=== PATIENT | male | born 1990 | race Caucasian/White ===

== ENCOUNTER 2023-01-15 10:48 | Emergency (ER) | payer MEDICAID ==
[~2023-01-15] VITALS: Ht 185.4 cm; Wt 104.5 kg
[2023-01-15] MEDS ORDERED: ketorolac tromethamine 15mg/ml inj. IM ONE (11:15)
[2023-01-15] MEDS ORDERED: CYCL-394 PO (12:32)
[2023-01-15] MEDS ORDERED: NAPR-56 PO (12:32)
[2023-01-15 12:38] VITALS: BP 112/58
== END 2023-01-15 12:59 | disposition home or self-care (01) ==
LOC: ER 10:48
DX: S39.012A Strain of muscle, fascia and tendon of lower back, initial encounter (principal); M25.521 Pain in right elbow; G89.29 Other chronic pain; M54.59 Other low back pain; F12.10 Cannabis abuse, uncomplicated; Z88.1 Allergy status to other antibiotic agents; Z79.899 Other long term (current) drug therapy; X58.XXXA Exposure to other specified factors, initial encounter; Y93.89 Activity, other specified; Y92.89 Other specified places as the place of occurrence of the external cause; Y99.8 Other external cause status
CPT/HCPCS: 72074; 72100; 73080; 96372; 99284; J1885

== ENCOUNTER 2025-06-15 10:34 | Emergency (ER) | payer MEDICAID ==
[~2025-06-15] VITALS: Ht 185.4 cm; Wt 112.2 kg
[2025-06-15 10:37] VITALS: BP 132/84; PULSE 71; RESP 18; O2SAT 99
[2025-06-15 11:19] LABS: MEAN PLATELET VOLUME 7.2 FL (7.4-10.4); RED CELL DISTRIBUTION WIDTH 14.6 % (11.5-14.5)
[2025-06-15 11:21] LABS: LEUKOCYTE ESTERASE ,URINE NEGATIVE (Neg); NITRITES, URINE NEGATIVE (Neg); OCCULT BLOOD,URINE NEGATIVE (Neg)
[2025-06-15 11:25] LABS: UA COLLECTION TYPE CLN CATCH MIDSTREAM
[2025-06-15 11:27] LABS: CREATININE 0.90 MG/DL (0.60-1.10); TOTAL CARBON DIOXIDE 26.5 MMOL/L (24-32); eCRCL 131 ML/MIN; eGFR > 90 ML/MIN
[2025-06-15 11:30] LABS: SQUAMOUS EPITHELIAL CELL,UR FEW /LPF (FEW)
--- NOTE | 2025-06-15 11:30 | RADIOLOGY REPORT ---
DI CHEST,SINGLE VIEW, HISTORY: SEPSIS COMPARISON: None None TECHNICAL DATA: 1 view of the chest was obtained. FINDINGS: Lines and tubes: None Cardiomediastinal silhouette: normal Pulmonary vasculature: normal Lung expansion: normal Lung airspace: normal Lung interstitium: normal Pleura: normal Pneumothorax: no Bones: Unremarkable Other: no IMPRESSION: No acute intrathoracic abnormality.
[2025-06-15 11:33] LABS: MUCUS STRANDS MANY /LPF (Neg)
--- NOTE | 2025-06-15 12:33 | Physician Documentation ---
History of Present Illness ~ Chief Complaint: Flu Symptoms Stated Complaint: FEVER ON AND OFF 3 MONTHS Time Seen by MD: 10:47 OK to notify your PCP?: Yes Primary Medical Doctor: Dr. Tabares Source: patient Mode of Arrival: POV Exam Limitations: no limitations HPI This is a 34-year-old male who comes in stating he has been feeling sick for a couple of months. He states his symptoms this is into worse at night with the fevers and chills. He has had an occasional cough. No nausea vomiting diarrhea. Currently he is not experiencing any symptoms. No change in bladder or bowel habits. Right now he isn't having pain anywhere. Medication Reconciliation Allergies: Coded Allergies: amoxicillin (Unverified Allergy, Unknown, 01/15/23) clavulanic acid (Unverified Allergy, Unknown, 01/15/23) iodine (Unverified Allergy, Unknown, 06/15/25) Past Medical History Past Medical History: Chronic Back Pain, *PSYCH* Past Surgical History: noncontributory Alcohol Use: Occasionally Drug Use: marijuana, other Lives In: Home Occupation: employed Physical Exam Vital Signs: Temperature: 97.9, Source: Temporal, Heart Rate: 71, Respiratory Rate: 18, BP: 132/84, Pulse Oximetry: 99, Weight: 112.200 Oxygen Flow Rate: 0 Pulse Oximetry Reflects: adequate oxygenation General Appearance: alert, WD/WN, no apparent distress Eyes: normal inspection EENT Bilateral EACs and TMs are within normal limits. Oropharynx shows no erythema edema or exudates. Mucous membranes are moist Neck: non-tender, full range of motion, supple, normal inspection, trachea midline Neck No meningeal signs Respiratory No accessory muscle use or retractions. Lungs are clear to auscultation all yeung. Cardiovascular No rubs, gallops or murmurs Gastrointestinal No tenderness to palpation x4 quadrants. No rigidity, rebound or guarding x4 quads. No Chandra's sign. Negative McBurney's point tenderness Back: no CVA tenderness Skin: normal color, warm/dry Neurologic: oriented x4, sales program manager II-XII nml as tested Lymphatic: no adenopathy Progress Results/Orders Reviewed/noted all lab results: Yes Results/Orders Vital Signs 06/15/25 06/15/25 10:37 12:41 Temp 97.9 97.9 Pulse 71 Resp 18 B/P (MAP) 132/84 Pulse Ox 99 O2 Flow Rate 0 Laboratory Tests Test 06/15/25 11:04 06/15/25 11:06 06/15/25 11:07 SARS-CoV-2 Antigen (Rapid) Negative Urine Specimen Description Cln catch midstream Urine Color Yellow Urine Clarity Slightly cloudy Urine pH 6.0 Urine Specific Mcclure 1.025 Urine Protein Negative Urine Glucose (UA) Negative Urine Ketones Negative Urine Occult Blood Negative Urine Nitrite Negative Urine Bilirubin Negative Urine Urobilinogen 0.2 Urine Leukocyte Esterase Negative Urine RBC 3-10 Urine WBC 10-20 H Urine Squamous Epithelial Cells Few Urine Bacteria Few Urine Coarse Granular Casts Urine Mucus Many Urine Culture Indicated Indicated Volume Urine Centrifuged 10 ml Urine Comment White Blood Count 8.1 Red Blood Count 4.93 Hemoglobin 14.0 Hematocrit 41.8 L Mean Corpuscular Volume 84.8 Mean Corpuscular Hemoglobin 28.5 Mean Corpuscular Hemoglobin Concent 33.6 Red Cell Distribution Width 14.6 H Platelet Count 266 Mean Platelet Volume 7.2 L Neutrophils (%) (Auto) 64.7 Lymphocytes (%) (Auto) 27.5 Monocytes (%) (Auto) 6.0 Eosinophils (%) (Auto) 0.9 Basophils (%) (Auto) 0.9 Neutrophils # (Auto) 5.2 Lymphocytes # (Auto) 2.2 Monocytes # (Auto) 0.5 Eosinophils # (Auto) 0.1 Basophils # (Auto) 0.1 CBC Comment Sodium Level 141 Potassium Level 3.6 Chloride Level 107 Carbon Dioxide Level 26.5 Anion Gap 8 Blood Urea Nitrogen 13 Creatinine 0.90 Estimated GFR/1.73 m2 > 90 BUN/Creatinine Ratio 14.4 Glucose Level 110 H Calcium Level 9.3 Albumin 3.8 Chemistry Comments Microbiology Date/Time Source Procedure Growth Status 06/15/25 11:35 Urine Clean Catch Midstream Urine Culture - Preliminary Culture received. Resulted EKG/XRAY/CT/US/VASC/MRI Chest X-Ray : Interpreted By: self Views: 1 VIEW Additional Comments Chest x-ray one view was interpreted by me: No acute disease process. Lungs are this is a clear. Cardiac silhouette appropriate. No bony abnormalities. Soft tissues unremarkable Medical Decision Making Findings The patient's workup which included a CBC CMP, urinalysis, viral swabs and chest x-ray were all within normal limits. His vital signs are within normal limits in his physical exam sensation in his negative. This could be a viral etiology. The patient is concerned about Lyme disease as he has been his lot of time outdoors. I told him follow up with the primary care physician and he does have an upcoming appointment with the PCP which he will address the possibility Lyme disease. Return to the ER for any worsening or acute issues Additional Comment Viral syndrome. Pneumonia. COVID. Influenza. UTI. Departure Disposition: HOME / SELF CARE / HOMELESS Impression: Primary Impression: Viral infection Condition: Stable Discharge Instructions: Viral Illness Additional Instructions: Your workup today did not show any concerning findings. Take ibuprofen or Tylenol if you have any fever or body aches. Drink lots of water and rest. Follow up with the primary care physician. Return for any worsening or concerning symptoms Referrals: NO PRIMARY CARE PROVIDER (PCP) Signature Scribe Signature: No scribe Attestation: The note accurately reflects work and decisions made by me.Honorio LOMAS 06/15/25 12:32 HONORIO GUADARRAMA Jun 15, 2025 12:33 HOME CARVALHO MD Jun 16, 2025 07:43
[2025-06-15 12:41] VITALS: TEMP 97.9
== END 2025-06-15 12:43 | disposition home or self-care (01) ==
LOC: ER 10:34
DX: B34.9 Viral infection, unspecified (principal); G89.29 Other chronic pain; F12.90 Cannabis use, unspecified, uncomplicated; F19.90 Other psychoactive substance use, unspecified, uncomplicated; Z88.1 Allergy status to other antibiotic agents; Z79.899 Other long term (current) drug therapy; Z72.89 Other problems related to lifestyle; Z20.822 Contact with and (suspected) exposure to COVID-19
CPT/HCPCS: 36415; 71045; 80048; 81001; 85025; 87088; 87811; 99284

== ENCOUNTER 2025-07-16 08:25 | Emergency (ER) | payer MEDICAID ==
[~2025-07-16] VITALS: Ht 185.4 cm; Wt 112.5 kg
[2025-07-16 08:28] VITALS: TEMP 97.3
--- NOTE | 2025-07-16 08:45 | Physician Documentation ---
History of Present Illness ~ Chief Complaint: Cold, cough & congestion Stated Complaint: COUGH Time Seen by MD: 08:40 Primary Medical Doctor: Ernestina Samuels [facility] This is a 35-year-old male who presents to the emergency department with what he describes as four days of illness with reported fever 102 at start of illness. He endorses spasmodic cough inducing vomiting. No CP. No abd pain or diarrhea. He was seen in this emergency department one month ago on 06/15/2025 at which point he had a chest x-ray with no acute abnormalities, labs that were all normal, urinalysis that appeared to be infected but showed no growth at 48 hours. The patient also had a negative COVID-19 test at that time. Medication Reconciliation Allergies: Coded Allergies: amoxicillin (Unverified Allergy, Unknown, 07/16/25) clavulanic acid (Unverified Allergy, Unknown, 07/16/25) iodine (Unverified Allergy, Unknown, 07/16/25) Past Medical History Past Medical History: Chronic Back Pain, *PSYCH* Past Surgical History: noncontributory Alcohol Use: Occasionally Drug Use: marijuana, other Lives In: Home Occupation: employed Review of Systems ROS As stated above in the HPI, otherwise all systems are reviewed and negative. Physical Exam Vital Signs: Temperature: 97.3, Source: Temporal, Heart Rate: 90, Respiratory Rate: 18, BP: 102/78, Pulse Oximetry: 100, Weight: 112.500 Oxygen Flow Rate: 0 Physical Exam General: Alert, no apparent distress. Neck: Full range of motion. Respiratory: Lungs clear, no respiratory distress. Chest: No accessory muscle use. Cardiovascular: Regular rate and rhythm, no murmurs. Gastrointestinal: Soft, nontender, nondistended. Bowels sounds present. Extremities: Normal range of motion, no deformity. Neurologic: Oriented x4. Psychiatric: Normal mood and affect. Skin: Normal color, warm and dry. No edema, no ecchymosis. Progress Results/Orders Results/Orders Orders - BRAYDON RYDER NP Covid19 Binax Poc Result Entry (07/16/25 08:53) Completed Orders - BRAYDON RYDER NP Influenza Type A&B Rapid Test (07/16/25 08:53) Vital Signs 07/16/25 07/16/25 08:28 09:16 Temp 97.3 Pulse 90 79 Resp 18 18 B/P (MAP) 102/78 122/73 (89) Pulse Ox 100 97 O2 Flow Rate 0 0 Laboratory Tests Test 07/16/25 09:11 07/16/25 09:13 SARS-CoV-2 Antigen (Rapid) Negative Influenza Type A Antigen Negative Influenza Type B Antigen Negative Medical Decision Making Additional information obtaine: old records Findings Patient was here 06/15/2025 for similar symptoms. Differential Dx:Considerations: Include: Allergic rhinitis, Influenza, Otitis media, Peritonsillar abscess, Pharyngitis-Diphtheria, Pharyngitis-Streptoccal, Pharyngitis-Viral, Pneumonia, Pnuemonitis, Sinusitis, URI Departure Time of Disposition: 09:49 Disposition: 01 HOME / SELF CARE / HOMELESS Impression: Primary Impression: Acute bronchitis Discharge Instructions: Acute Bronchitis, Adult Additional Instructions: You are viral testing was negative for COVID and influenza. You appear to have bronchitis, which is a viral process, made worse in people who smoke due to their tobacco exposure. You will be treated with a Medrol Dosepak, a Ventolin inhaler, and ondansetron as needed for nausea. Please follow up with your primary care provider, return if worse. Referrals: NO PRIMARY CARE PROVIDER (PCP) Prescriptions Ondansetron 8mg ODT (Ondansetron Odt) 8 Mg Tab.rapdis 1 TAB PO TID PRN for nausea/vomiting, #10 TAB Prov: BRAYDON RYDER NP 07/16/25 Albuterol Sulfate (Ventolin Hfa) 90 Mcg Hfa.aer.ad 2 PUFFS INH Q4HPRN PRN for wheezing for 30 Days, #18 GM 0 Refills Prov: BRAYDON RYDER NP 07/16/25 Methylprednisolone (Medrol Dosepak) 4 Mg Tab.ds.pk 0 PO UD, #21 TAB 0 Refills take 6 Pills Day 1, 5 Pills Day 2, 4 Pills Day 3, 3 Pills Day 4, 2 Pills Day 5 and 1 pill Day 6 Prov: BRAYDON RYDER NP 07/16/25 Education Educated: Patient Educated regarding: diagnosis, treatment, prognosis, need for follow up Signature Scribe Signature: x Attestation: The note accurately reflects work and decisions made by me.Braydon Samuels NP 07/16/25 08:54 BRAYDON RYDER NP Jul 16, 2025 08:45
[2025-07-16 09:44] LABS: INFLUENZA TYPE A ANTIGEN RAPID NEGATIVE (Negative); INFLUENZA TYPE B ANTIGEN RAPID NEGATIVE (Negative)
[2025-07-16] MEDS ORDERED: ALBU18HF2 INH (09:49)
[2025-07-16] MEDS ORDERED: ONDA-245 PO (09:49)
[2025-07-16] MEDS ORDERED: METH4TAB81 PO (09:49)
[2025-07-16 10:01] VITALS: BP 115/82; PULSE 77; RESP 18; O2SAT 96
== END 2025-07-16 10:08 | disposition home or self-care (01) ==
LOC: ER 08:25
DX: J20.9 Acute bronchitis, unspecified (principal); G89.29 Other chronic pain; F12.90 Cannabis use, unspecified, uncomplicated; F19.90 Other psychoactive substance use, unspecified, uncomplicated; Z88.8 Allergy status to other drugs, medicaments and biological substances; Z88.1 Allergy status to other antibiotic agents; Z72.89 Other problems related to lifestyle; Z20.822 Contact with and (suspected) exposure to COVID-19
CPT/HCPCS: 36415; 87804; 87811; 99283

== ENCOUNTER 2025-07-21 09:34 | Emergency (ER) | payer MEDICAID ==
[~2025-07-21] VITALS: Ht 185.4 cm; Wt 111.8 kg
[~2025-07-21 09:34] MED LIST: ALBU18HF2 INH; METH4TAB81 PO; ONDA-245 PO
[2025-07-21 09:49] VITALS: TEMP 97.2
--- NOTE | 2025-07-21 10:33 | Physician Documentation ---
History of Present Illness ~ Chief Complaint: Cold, cough & congestion Stated Complaint: COLD SYMPTOMS Time Seen by MD: 10:31 Primary Medical Doctor: Ernestina Feliz [facility] This 35-year-old male presents to the emergency department for ongoing issues with cough and shortness of breath. He was last seen in this emergency department on 07/16/2025. At that time, he was found to have some mild wheezing and was treated for bronchitis with a Medrol Dosepak and an inhaler. He returns today due to concerns that he is getting worse rather than better. Medication Reconciliation Allergies: Coded Allergies: amoxicillin (Unverified Allergy, Unknown, 07/21/25) clavulanic acid (Unverified Allergy, Unknown, 07/21/25) iodine (Unverified Allergy, Unknown, 07/21/25) Scheduled Doxycycline Hyclate (Doxycycline Hyclate), 1 CAP PO Q12H Methylprednisolone (Medrol Dosepak), 0 PO UD Scheduled PRN Albuterol Sulfate (Ventolin Hfa), 2 PUFFS INH Q4HPRN PRN for wheezing Ondansetron 8mg ODT (Ondansetron Odt), 1 TAB PO TID PRN for nausea/vomiting Past Medical History Past Medical History: Chronic Back Pain, *PSYCH* Past Surgical History: noncontributory Alcohol Use: Occasionally Drug Use: marijuana, other Lives In: Home Occupation: employed Review of Systems ROS As stated above in the HPI, otherwise all systems are reviewed and negative. Physical Exam Vital Signs: Temperature: 97.2, Source: Temporal, Heart Rate: 58, Respiratory Rate: 16, BP: 142/79, Pulse Oximetry: 97, Weight: 111.800 Oxygen Flow Rate: 0 Physical Exam General: Alert, no apparent distress. HEENT: PERRL, EOMI, no injection, moist mucous membranes. Neck: Full range of motion. Respiratory: Mild wheezing, no distress. Chest: No accessory muscle use. Cardiovascular: Regular rate and rhythm, no murmurs. Gastrointestinal: Soft, nontender, nondistended. Bowels sounds present. Extremities: Normal range of motion, no deformity. Neurologic: Oriented x4. Psychiatric: Normal mood and affect. Skin: Normal color, warm and dry. No edema, no ecchymosis. Progress Results/Orders Results/Orders Orders - BRITNI,BRAYDON L [employer]Y [employer] Svn Treatment (07/21/25 11:28) Chest,Two Views (07/21/25 11:50) Completed Orders - BRAYDON RYDER [employer] Ipratropium/Albuterol Nebule (Ipratrop/A (07/21/25 11:30) Chest,Two Views (07/21/25 11:50) Medications Received in ER Medications (Trade) Dose Ordered Sig/Singh Route PRN Reason Start Time Stop Time Status Last Admin Dose Admin (ipratrop/ albuterol 0.5-3(2.5) MG/3ml nebule) 3 ml ONCE ONCE NEB 07/21/25 11:30 07/21/25 11:31 DC 07/21/25 11:46 3 ML Vital Signs 07/21/25 07/21/25 07/21/25 07/21/25 09:49 11:22 11:47 11:47 Temp 97.2 Pulse 58 59 52 Resp 16 18 18 B/P (MAP) 142/79 Pulse Ox 97 100 99 O2 Delivery Room Air* Room Air* O2 Flow Rate 0 0 0 FiO2 N/A N/A EKG/XRAY/CT/US/VASC/MRI Chest X-Ray : Additional Comments [place] [id number] DIAGNOSTIC RADIOLOGY Patient: ALLIE SCHULER Medical Record: [id number] [facility] : 1990, Age: 35 Sex: Male Location: ER Patient Status: REG ER Service Date/Time: 07/21/25/ 1150 Ordering Physician: BRAYDON RYDER [employer] Exam: CHEST,TWO VIEWS CHEST RADIOGRAPH Indication: cough, dyspnea Technique: Frontal and lateral view of the chest was obtained Comparison: DI CHEST,SINGLE VIEW on DOS: 06/15/25 FINDINGS: Lines and Tubes: None Lungs: Congestion Pleura: No effusion. No pneumothorax. Cardiomediastinal contours: Unremarkable Bones: Unremarkable IMPRESSION: Increased interstital prominence. This may represent pulmonary vascular congestion and/or viral pneumonia. Clinical correlation advised. Electronically Signed by:CHAPO BOLES MD Date & Time: 07/21/25 120 Dictated by: CHAPO BOLES MD Dictation date and time: 07/21/25 1204 Primary Care Provider: NO PRIMARY CARE PROVIDER cc: BRAYDON RYDER NP ~ Medical Decision Making Additional information obtaine: old records Findings Reviewed recent ER visit. Differential Dx:Considerations: Include: Allergic rhinitis, Influenza, Otitis media, Peritonsillar abscess, Pharyngitis-Diphtheria, Pharyngitis-Streptoccal, Pharyngitis-Viral, Pneumonia, Pnuemonitis, Sinusitis, URI Differential Diagnosis Found to have viral pneumonia pattern on chest x-ray. However, due to the duration of illness with the patient being reportedly sick since about the 15 of June, he will be treated with a course of doxycycline. He is return if worse. He is to follow up with primary care. Departure Time of Disposition: 12:22 Disposition: 01 HOME / SELF CARE / HOMELESS Impression: Primary Impression: Pneumonia Condition: Stable Discharge Instructions: Community-Acquired Pneumonia, Adult Additional Instructions: Chest x-ray showed possible viral pneumonia. Due to the duration of your symptoms, he will be treated with an antibiotic. Take the full course of doxycycline x1 week. Continue to use your inhaler as needed. Follow up with the primary care within a week. Return if worse. Referrals: NO PRIMARY CARE PROVIDER (PCP) Prescriptions Doxycycline Hyclate (Doxycycline Hyclate) 100 Mg Capsule 1 CAP PO Q12H for 7 Days, #14 CAP Prov: BRAYDON RYDER NP 07/21/25 Education Educated: Patient Educated regarding: diagnosis, treatment, prognosis, need for follow up Signature Scribe Signature: x Attestation: The note accurately reflects work and decisions made by me.Braydon Samuels NP 07/21/25 10:32 BRAYDON RYDER NP Jul 21, 2025 10:33
[2025-07-21] MEDS: ipratropium/albuterol 3ml nebule NEB ONE (11:46)
[2025-07-21 11:47] VITALS: PULSE 52; PULSE 59; RESP 18; O2SAT 100; O2SAT 99
--- NOTE | 2025-07-21 12:06 | RADIOLOGY REPORT ---
CHEST RADIOGRAPH Indication: cough, dyspnea Technique: Frontal and lateral view of the chest was obtained Comparison: DI CHEST,SINGLE VIEW on DOS: 06/15/25 FINDINGS: Lines and Tubes: None Lungs: Congestion Pleura: No effusion. No pneumothorax. Cardiomediastinal contours: Unremarkable Bones: Unremarkable IMPRESSION: Increased interstital prominence. This may represent pulmonary vascular congestion and/or viral pneumonia. Clinical correlation advised.
[2025-07-21] MEDS ORDERED: DOXY-224 PO (12:23)
[2025-07-21 13:20] VITALS: BP 126/80; PULSE 60; RESP 18; O2SAT 96
== END 2025-07-21 13:26 | disposition home or self-care (01) ==
LOC: ER 09:35
DX: J18.9 Pneumonia, unspecified organism (principal); F12.90 Cannabis use, unspecified, uncomplicated; Z88.0 Allergy status to penicillin; Z88.8 Allergy status to other drugs, medicaments and biological substances
CPT/HCPCS: 71046; 94640; 94760; 99283